=== PATIENT | female | born 1970 | race Two or more races ===

== ENCOUNTER → 2020-05-05 | Outpatient (CLI) | payer OTHER ==
[~2020-05-05] MED LIST: IOHEXOL 240 MG/ML 50ML VIAL. PO ONE; IOHEXOL 300 MG/ML 100ML VIAL. IV ONE
--- NOTE | 2020-05-05 16:34 | RAD ---
EXAM: CT Abdomen and Pelvis with IV contrast CLINICAL HISTORY: Reason: RIGHT OVARIAN CYST, IRON DEFICIENCY, ANEMIA, WEIGHT LOSS COMPARISON: none TECHNIQUE: Helical CT of the abdomen and pelvis was performed following the administration of intrave nous contrast. Axial, coronal and sagittal reformatted images were generated. PQRS compliance statement - One or more of the following individualized dose reduction techniques wer e utilized for this study: 1. Automated exposure control 2. Adjustment of the mA and/or kV according to patient size 3. Use of iterative reconstruction technique FINDINGS: Lower chest: Lung bases are clear. Abdomen and Pelvis: Subtle focal low-attenuation along the falciform ligament likely focal fatty infiltration. Otherwise liver, spleen, adrenal glands, pancreas and gallbladder are normal. No biliary duct dilatation. Symmetric nephrograms. No focal renal lesion. No hydronephrosis. No hydroureter. Bladder is unremarka ble. Mild to moderate colonic stool content is seen. Appendix is not seen. No small or large bowel dilatat ion. Low-density within the uterus likely uterine fibroid. Endometrial prominence can be correlated with p hase of menstrual cycle. Right adnexal cyst measures 3.1 cm and can be further assessed by pelvic ult rasound if not previously performed. No abdominal or pelvic ascites. No abdominal or pelvic lymphadenopathy. Bones: No aggressive osseous lesion is seen. IMPRESSION: 1. Right adnexal cyst measures 3.1 cm and can be further assessed by pelvic ultrasound if not previo usly performed. 2. Endometrial prominence can be correlated with phase of cycle. 3. Mild to moderate colonic stool content is seen. No bowel obstruction. Electronically signed by: Rinku Talavera MD (05/05/2020 4:32 PM) BETTY
== END ==
LOC: CT 10:07
PROVIDERS: ATTEND Family Medicine
DX: N83.291 Other ovarian cyst, right side (principal); R31.9 Hematuria, unspecified; D64.9 Anemia, unspecified; R63.4 Abnormal weight loss
CPT/HCPCS: 74177; Q9966; Q9967

== ENCOUNTER → 2020-08-07 | Outpatient (CLI) | payer OTHER ==
--- NOTE | 2020-08-07 16:44 | RAD ---
INDICATION: Reason: Follow Up RT OVARIAN CYST seen on CT 05-05-20 / Spl. Instructions: / History: COMPARISON: April 2020 TECHNIQUE: Grayscale and color ultrasound images uterus and adnexa. FINDINGS: Uterus: 119 x 69 x 47 mm. Endometrial stripe is 2-3 mm. Right Ovary: 56 x 36 x 37 mm. Left Ovary: 23 x 17 x 18 mm. Vascular flow identified to bilateral ovaries. 40 x 36 x 29 mm right ovarian cyst. IMPRESSION: * Right ovarian cyst is seen. * Vascular flow seen to the ovaries. Electronically signed by: Gildardo Randall MD (08/07/2020 4:42 PM) [id number]
== END ==
LOC: US 15:30
DX: N83.201 Unspecified ovarian cyst, right side (principal)
CPT/HCPCS: 76856